=== PATIENT | female | born 2000 | race Two or more races ===

== ENCOUNTER 2021-06-13 10:15 | Emergency (ER) | payer OTHER ==
[~2021-06-13] VITALS: Ht 170.2 cm; Wt 68.0 kg
[2021-06-13] MEDS ORDERED: ZITHROMAX500 MG PO (12:13)
[2021-06-13] MEDS ORDERED: OSEL75CA PO (12:18)
== END 2021-06-13 12:43 | disposition home or self-care (01) ==
LOC: ER 10:15
DX: A49.3 Mycoplasma infection, unspecified site (principal); J10.1 Influenza due to other identified influenza virus with other respiratory manifestations; Z20.822 Contact with and (suspected) exposure to COVID-19